=== PATIENT | female | born 1955 | race Hispanic/Latino ===

== ENCOUNTER 2020-12-10 10:24 | Outpatient (CLI) | payer MEDICARE | END 2020-12-10 10:25 | disposition home or self-care (01) | LOC: BICMAMMO 10:24 | PROVIDERS: ATTEND Obstetrics & Gynecology | DX: Z12.31 Encounter for screening mammogram for malignant neoplasm of breast (principal); Z80.3 Family history of malignant neoplasm of breast | CPT/HCPCS: 77063; 77067 ==

== ENCOUNTER 2021-05-31 07:49 | Inpatient (IN) | payer MEDICARE ==
[2021-05-31] MEDS ORDERED: CEFAZOLIN 1 GM VIAL ONE (09:05)
[2021-05-31] MEDS ORDERED: Iopamidol-370 76% 500 ML 1 ML ONE (09:11)
[2021-05-31] MEDS ORDERED: Fentanyl 100 MCG/2 ML VIAL ONE (11:16)
[2021-05-31] MEDS ORDERED: Midazolam HCl 2 mg/2 ml Vial ONE (11:16)
[2021-05-31] MEDS ORDERED: Bupivacaine 0.25% HCL 30 ML VIAL ONE (11:19)
[2021-05-31] MEDS ORDERED: Ondansetron PF 4 MG/2 ML Vial ONE ×2 (11:30→20:54)
[2021-05-31] MEDS ORDERED: ePHEDrine 50 MG/ML VIAL ONE (11:30)
[2021-05-31] MEDS ORDERED: PROPOFOL 200 MG/20 ML VIAL ONE (11:30)
[2021-05-31] MEDS ORDERED: Lidocaine 1% PF 5 ML VIAL ONE (11:30)
[2021-05-31] MEDS ORDERED: Dexamethasone 20 MG/5 ML VIAL ONE (11:30)
[2021-05-31] MEDS ORDERED: Succinylcholine 200 MG/10 ml SYRINGE FS ONE (11:30)
[2021-05-31] MEDS ORDERED: Nitroglycerin 0.4 MG TAB (25 Tab Bottle) ONE (13:04)
[2021-05-31] MEDS ORDERED: Morphine 4 MG/ML VIAL ONE (13:46)
[2021-05-31] MEDS ORDERED: Acetaminophen 500 MG TAB ONE ×2 (15:12)
[2021-05-31] MEDS ORDERED: Morphine 2 MG/ML VIAL ONE (15:34)
[2021-05-31] MEDS ORDERED: Morphine 2 MG/ML VIAL SLOW IVP PRN (15:56)
[2021-05-31] MEDS ORDERED: Famotidine 20 MG TAB PO PRN (15:58)
[2021-05-31] MEDS ORDERED: Benzonatate 100 MG CAP PO PRN (15:58)
[2021-05-31] MEDS ORDERED: Ondansetron PF 4 MG/2 ML Vial IVP PRN (16:34)
[2021-05-31] MEDS ORDERED: Guaifenesin DM 100-10/5 ML UDCUP PO PRN (16:34)
[2021-05-31] MEDS ORDERED: Ondansetron ODT 4 MG TAB PO PRN (16:34)
[2021-05-31] MEDS ORDERED: Clopidogrel Bisulfate 75 MG TAB PO SCH (16:45)
[2021-05-31] MEDS ORDERED: Aspirin 81 mg Enteric Coated Tablet PO SCH (16:45)
[2021-05-31] MEDS ORDERED: Aspirin 81 mg Enteric Coated Tablet ONE (17:18)
[2021-05-31] MEDS ORDERED: Nitroglycerin 50 MG/250 ML BOT 250 ML ONE (17:19)
[2021-05-31] MEDS ORDERED: Clopidogrel Bisulfate 75 MG TAB ONE (17:20)
[2021-05-31 17:26] LABS: #Lymphocytes 0.8 thou/uL (1.20-3.40); #Monocytes 0.1 thou/uL (0.11-0.59); %Basophils 0.3 % (0.0-1.0); %Eosinophils 0.1 % (0.0-10.0); %Lymphocytes 7.9 % (21.0-51.0); %Monocytes 0.8 % (0.0-10.0); %Neutrophils 90.9 % (42.0-75.0); Hemoglobin 11.2 g/dL (12.0-16.0); Mean Corpuscular HGB CONC 34.1 g/dL (32.0-36.0); Mean Corpuscular Hemoglobin 30.1 pg (27.0-31.0); Mean Corpuscular Volume 88.3 fL (78.0-98.0); Mean Platelet Volume 7.5 fL (7.4-10.4); Platelet Count 234 thou/uL (130-400); RBC Distribution Width 12.6 % (11.5-14.5); Red Blood Cell (RBC) Count 3.73 mill/uL (4.20-5.40); White Blood Cell (WBC) Count 9.9 thou/uL (4.8-10.8)
[2021-05-31] MEDS ORDERED: Nitroglycerin 50 MG/250 ML BOT 250 ML IVPB SCH (17:30)
[2021-05-31 17:50] LABS: ALT (SGPT) 16 U/L (8-55); AST (SGOT) 14 U/L (5-34); Albumin 3.7 g/dL (3.4-4.8); Alkaline Phosphatase 73 U/L (40-110); Anion Gap 8 mmol/L (10-20); BUN (Urea Nitrogen) 18 mg/dL (9.8-20.1); Bilirubin, Total 0.3 mg/dL (0.2-1.2); Calc. Creatinine Clearance 116 mL/min (70-130); Carbon Dioxide 28 mmol/L (23-31); Chloride 105 mmol/L (98-107); Globulin 2.9 g/dL (2.4-3.5); Glucose 132 mg/dL (80-115); Lipase 36 U/L (8-78); Protein, Total 6.6 g/dL (5.8-8.1); Sodium 137 mmol/L (136-145)
[2021-05-31 17:54] LABS: Troponin I Less than 0.010 ng/mL (< 0.028)
[2021-05-31] MEDS ORDERED: Albuterol 200 PUFF (6.7GM INHALER) INH PRN (18:55)
[2021-05-31] MEDS ORDERED: Albuterol Sulfate 1.25 MG/3 ML NEB INH PRN (19:05)
[2021-05-31] MEDS ORDERED: Pantoprazole 40 MG VIAL IVP SCH (19:30)
[2021-05-31 20:35] LABS: Troponin I Less than 0.010 ng/mL (< 0.028)
[2021-05-31] MEDS: Montelukast Sodium 10 mg Tablet PO SCH (21:00)
[2021-05-31] MEDS: Carvedilol 6.25 MG TAB PO SCH (21:00)
[2021-05-31] MEDS: Pramipexole Di-HCl 0.25 MG TAB PO SCH (21:00)
[2021-05-31] MEDS: Losartan 25 MG TAB PO SCH (21:00)
[2021-05-31] MEDS ORDERED: Nitroglycerin 2% Ointment 1 INCH/1 GM Packet TOP SCH ×2 (22:00)
[2021-05-31] MEDS: Morphine 2 MG/ML VIAL SLOW IVP PRN (23:07)
[2021-06-01] MEDS ORDERED: Nitroglycerin 50 MG/250 ML BOT 250 ML IVPB PRN (00:45)
[2021-06-01] MEDS ORDERED: Enoxaparin Sodium 100 MG/ML SYRINGE SC SCH (00:45)
[2021-06-01] MEDS: Ipratropium Bromide 2.5 ml Neb NEB SCH ×4 (01:18→18:13)
[2021-06-01 03:59] LABS: #Lymphocytes 0.9 thou/uL (1.20-3.40); #Monocytes 0.2 thou/uL (0.11-0.59); #Neutrophils 8.1 thou/uL (1.40-6.50); %Lymphocytes 9.4 % (21.0-51.0); %Monocytes 2.5 % (0.0-10.0); %Neutrophils 88.1 % (42.0-75.0); Hemoglobin 11.2 g/dL (12.0-16.0); Mean Corpuscular HGB CONC 34.7 g/dL (32.0-36.0); Mean Corpuscular Hemoglobin 30.7 pg (27.0-31.0); Mean Corpuscular Volume 88.3 fL (78.0-98.0); Mean Platelet Volume 7.6 fL (7.4-10.4); Platelet Count 237 thou/uL (130-400); RBC Distribution Width 12.5 % (11.5-14.5); Red Blood Cell (RBC) Count 3.65 mill/uL (4.20-5.40); White Blood Cell (WBC) Count 9.2 thou/uL (4.8-10.8)
[2021-06-01 04:13] LABS: Anion Gap 12 mmol/L (10-20); BUN (Urea Nitrogen) 15 mg/dL (9.8-20.1); Calc. Creatinine Clearance 143 mL/min (70-130); Calcium 8.9 mg/dL (7.8-10.44); Carbon Dioxide 25 mmol/L (23-31); Cardiac Risk 2.7 (Less than 4.5); Chloride 104 mmol/L (98-107); Cholesterol 170 mg/dl (< 200 Desired); Glucose 142 mg/dL (80-115); HDL Cholesterol 64 mg/dL (>60 Neg Risk); LDL Cholesterol, Calculated 93 mg/dL; Potassium 3.7 mmol/L (3.5-5.1); Sodium 137 mmol/L (136-145); Triglycerides 67 mg/dL (Less than 150)
[2021-06-01] MEDS: Acetaminophen 325 MG TAB PO PRN (05:11)
[2021-06-01 05:27] VITALS: BMI 43.2
[2021-06-01] MEDS ORDERED: hydrALAZINE 20 MG/ML VIAL SLOW IVP PRN (06:03)
[2021-06-01] MEDS ORDERED: TIOTROPIUM BROMIDE 4 GM INH SCH (09:00)
[2021-06-01] MEDS ORDERED: MIST INHAL INH SCH (09:00)
[2021-06-01] MEDS: Aspirin 81 mg Enteric Coated Tablet PO SCH (09:14)
[2021-06-01] MEDS: Ascorbic Acid 500 mg Chewable Tablet PO SCH (09:14)
[2021-06-01] MEDS: Clopidogrel Bisulfate 75 MG TAB PO SCH (09:14)
[2021-06-01] MEDS: Losartan 25 MG TAB PO SCH ×2 (09:14→21:10)
[2021-06-01] MEDS: Cholecalciferol 1,000 UNITS (25 MCG) TAB PO SCH (09:15)
[2021-06-01] MEDS: Carvedilol 6.25 MG TAB PO SCH ×2 (09:15→21:09)
[2021-06-01] MEDS: Magnesium Oxide 400 MG TAB PO SCH (09:15)
[2021-06-01] MEDS: Pantoprazole 40 MG VIAL IVP SCH (09:16)
[2021-06-01] MEDS: Morphine 2 MG/ML VIAL SLOW IVP PRN ×2 (11:00→17:03)
[2021-06-01 12:51] LABS: Troponin I Less than 0.010 ng/mL (< 0.028)
[2021-06-01] MEDS ORDERED: Lidocaine 2% Viscous Solution 20 ML, Aluminum & Magnesium Hydroxide 30 ML, Donnatal Eli... SSW SCH (13:30)
[2021-06-01] MEDS: Pramipexole Di-HCl 0.25 MG TAB PO SCH (21:10)
[2021-06-01] MEDS: Montelukast Sodium 10 mg Tablet PO SCH (21:10)
[2021-06-02] MEDS: Ipratropium Bromide 2.5 ml Neb NEB SCH ×4 (02:15→18:25)
[2021-06-02] MEDS: Pantoprazole 40 MG VIAL IVP SCH (08:56)
[2021-06-02] MEDS: Clopidogrel Bisulfate 75 MG TAB PO SCH (08:56)
[2021-06-02] MEDS: Ascorbic Acid 500 mg Chewable Tablet PO SCH (08:56)
[2021-06-02] MEDS: Aspirin 81 mg Enteric Coated Tablet PO SCH (08:56)
[2021-06-02] MEDS: Magnesium Oxide 400 MG TAB PO SCH (08:56)
[2021-06-02] MEDS: Cholecalciferol 1,000 UNITS (25 MCG) TAB PO SCH (08:56)
[2021-06-02] MEDS: Losartan 25 MG TAB PO SCH ×2 (08:57→20:57)
[2021-06-02] MEDS: Carvedilol 6.25 MG TAB PO SCH ×2 (08:57→20:57)
[2021-06-02 15:40] LABS: ALT (SGPT) 16 U/L (8-55); AST (SGOT) 16 U/L (5-34); Albumin 3.6 g/dL (3.4-4.8); Alkaline Phosphatase 67 U/L (40-110); Bilirubin, Direct 0.1 mg/dL (0.1-0.3); Bilirubin, Total 0.3 mg/dL (0.2-1.2); Lipase 47 U/L (8-78); Protein, Total 6.5 g/dL (5.8-8.1)
[2021-06-02] MEDS: Pramipexole Di-HCl 0.25 MG TAB PO SCH (20:56)
[2021-06-02] MEDS: Montelukast Sodium 10 mg Tablet PO SCH (20:57)
[2021-06-03] MEDS: Ipratropium Bromide 2.5 ml Neb NEB SCH ×4 (00:42→19:16)
[2021-06-03] MEDS: Ascorbic Acid 500 mg Chewable Tablet PO SCH (08:43)
[2021-06-03] MEDS: Cholecalciferol 1,000 UNITS (25 MCG) TAB PO SCH (08:43)
[2021-06-03] MEDS: Aspirin 81 mg Enteric Coated Tablet PO SCH (08:43)
[2021-06-03] MEDS: Clopidogrel Bisulfate 75 MG TAB PO SCH (08:43)
[2021-06-03] MEDS: Carvedilol 6.25 MG TAB PO SCH ×2 (08:44→20:18)
[2021-06-03] MEDS: Magnesium Oxide 400 MG TAB PO SCH (08:44)
[2021-06-03] MEDS: Pantoprazole 40 MG VIAL IVP SCH (08:44)
[2021-06-03] MEDS: Losartan 25 MG TAB PO SCH ×2 (08:44→20:18)
[2021-06-03] MEDS ORDERED: Iopamidol-370 76% 500 ML 1 ML ONE (13:26)
[2021-06-03 14:53] LABS: #Basophils 0.1 thou/uL (0.0-0.2); #Eosinphils 0.2 thou/uL (0.0-0.7); #Lymphocytes 2.9 thou/uL (1.20-3.40); #Monocytes 0.9 thou/uL (0.11-0.59); #Neutrophils 5.6 thou/uL (1.40-6.50); %Eosinophils 1.8 % (0.0-10.0); %Lymphocytes 30.2 % (21.0-51.0); Hemoglobin 11.9 g/dL (12.0-16.0); Mean Corpuscular HGB CONC 33.5 g/dL (32.0-36.0); Mean Corpuscular Hemoglobin 29.5 pg (27.0-31.0); Mean Corpuscular Volume 88.2 fL (78.0-98.0); Mean Platelet Volume 7.4 fL (7.4-10.4); Platelet Count 256 thou/uL (130-400); RBC Distribution Width 12.6 % (11.5-14.5); Red Blood Cell (RBC) Count 4.05 mill/uL (4.20-5.40); White Blood Cell (WBC) Count 9.6 thou/uL (4.8-10.8)
[2021-06-03 15:15] LABS: Anion Gap 11 mmol/L (10-20); BUN (Urea Nitrogen) 15 mg/dL (9.8-20.1); Calc. Creatinine Clearance 110 mL/min (70-130); Carbon Dioxide 27 mmol/L (23-31); Chloride 105 mmol/L (98-107); Glucose 103 mg/dL (80-115); Sodium 139 mmol/L (136-145)
[2021-06-03] MEDS: Acetaminophen 325 MG TAB PO PRN (20:17)
[2021-06-03] MEDS: Montelukast Sodium 10 mg Tablet PO SCH (20:17)
[2021-06-03] MEDS: Pramipexole Di-HCl 0.25 MG TAB PO SCH (20:18)
[2021-06-04] MEDS: Ipratropium Bromide 2.5 ml Neb NEB SCH ×5 (00:13→23:43)
[2021-06-04 04:36] LABS: #Basophils 0.1 thou/uL (0.0-0.2); #Eosinphils 0.2 thou/uL (0.0-0.7); #Lymphocytes 3.1 thou/uL (1.20-3.40); #Monocytes 0.9 thou/uL (0.11-0.59); #Neutrophils 6.1 thou/uL (1.40-6.50); %Basophils 0.6 % (0.0-1.0); %Eosinophils 1.9 % (0.0-10.0); %Lymphocytes 29.7 % (21.0-51.0); %Monocytes 8.5 % (0.0-10.0); %Neutrophils 59.2 % (42.0-75.0); Hemoglobin 11.6 g/dL (12.0-16.0); Mean Corpuscular HGB CONC 33.3 g/dL (32.0-36.0); Mean Corpuscular Hemoglobin 29.3 pg (27.0-31.0); Mean Corpuscular Volume 87.9 fL (78.0-98.0); Mean Platelet Volume 7.6 fL (7.4-10.4); Platelet Count 253 thou/uL (130-400); RBC Distribution Width 12.6 % (11.5-14.5); Red Blood Cell (RBC) Count 3.98 mill/uL (4.20-5.40); White Blood Cell (WBC) Count 10.3 thou/uL (4.8-10.8)
[2021-06-04 04:57] LABS: Anion Gap 9 mmol/L (10-20); BUN (Urea Nitrogen) 13 mg/dL (9.8-20.1); Calc. Creatinine Clearance 113 mL/min (70-130); Carbon Dioxide 30 mmol/L (23-31); Chloride 107 mmol/L (98-107); Glucose 95 mg/dL (80-115); Potassium 4.2 mmol/L (3.5-5.1); Sodium 142 mmol/L (136-145)
[2021-06-04] MEDS: Ascorbic Acid 500 mg Chewable Tablet PO SCH (09:05)
[2021-06-04] MEDS: Aspirin 81 mg Enteric Coated Tablet PO SCH (09:05)
[2021-06-04] MEDS: Clopidogrel Bisulfate 75 MG TAB PO SCH (09:07)
[2021-06-04] MEDS: Cholecalciferol 1,000 UNITS (25 MCG) TAB PO SCH (09:07)
[2021-06-04] MEDS: Carvedilol 6.25 MG TAB PO SCH ×2 (09:07→20:32)
[2021-06-04] MEDS: Losartan 25 MG TAB PO SCH ×2 (09:08→20:32)
[2021-06-04] MEDS: Magnesium Oxide 400 MG TAB PO SCH (09:08)
[2021-06-04] MEDS: Montelukast Sodium 10 mg Tablet PO SCH (20:32)
[2021-06-04] MEDS: Pramipexole Di-HCl 0.25 MG TAB PO SCH (20:36)
[2021-06-05 07:39] VITALS: BP 171/79; TEMP 97.8
[2021-06-05] MEDS: Ascorbic Acid 500 mg Chewable Tablet PO SCH (09:11)
[2021-06-05] MEDS: Magnesium Oxide 400 MG TAB PO SCH (09:11)
[2021-06-05] MEDS: Cholecalciferol 1,000 UNITS (25 MCG) TAB PO SCH (09:11)
[2021-06-05] MEDS: Carvedilol 6.25 MG TAB PO SCH (09:12)
[2021-06-05] MEDS: Losartan 25 MG TAB PO SCH (09:13)
[2021-06-05] MEDS: Aspirin 81 mg Enteric Coated Tablet PO SCH (09:13)
[2021-06-05] MEDS: Clopidogrel Bisulfate 75 MG TAB PO SCH (09:13)
[2021-06-05] MEDS: Ipratropium Bromide 2.5 ml Neb NEB SCH (09:19)
== END 2021-06-05 10:52 | disposition home or self-care (01) | DRG 981 ==
LOC: SDC 07:49 → CCU 15:58 → INTOOBSV 15:58 → 2NO 06-01 16:54 → OBSVTOIN 06-04 14:38
PROVIDERS: ADMIT Urology; ATTEND Urology
PROC: 01PY3MZ Removal of Neurostimulator Lead from Peripheral Nerve, Percutaneous Approach (ICD-10-PCS; principal; 2021-05-31)
PROC: 0JPT3MZ Removal of Stimulator Generator from Trunk Subcutaneous Tissue and Fascia, Percutaneous Approach (ICD-10-PCS; 2021-05-31)
DX: T83.190A Other mechanical complication of urinary electronic stimulator device, initial encounter (principal); J69.0 Pneumonitis due to inhalation of food and vomit; I25.110 Atherosclerotic heart disease of native coronary artery with unstable angina pectoris; J98.11 Atelectasis; Y84.9 Medical procedure, unspecified as the cause of abnormal reaction of the patient, or of later complication, without mention of misadventure at the time of the procedure; I50.9 Heart failure, unspecified; J45.909 Unspecified asthma, uncomplicated; G47.33 Obstructive sleep apnea (adult) (pediatric); I11.0 Hypertensive heart disease with heart failure; E78.5 Hyperlipidemia, unspecified; E66.9 Obesity, unspecified; G89.29 Other chronic pain; R32 Unspecified urinary incontinence; G25.81 Restless legs syndrome; Z96.652 Presence of left artificial knee joint; K21.9 Gastro-esophageal reflux disease without esophagitis; F41.9 Anxiety disorder, unspecified; F32.9 Major depressive disorder, single episode, unspecified; R10.9 Unspecified abdominal pain; R07.89 Other chest pain; Z68.41 Body mass index [BMI] 40.0-44.9, adult; Z95.5 Presence of coronary angioplasty implant and graft; I25.2 Old myocardial infarction; Z88.5 Allergy status to narcotic agent; Z79.01 Long term (current) use of anticoagulants; Z79.82 Long term (current) use of aspirin; Z79.51 Long term (current) use of inhaled steroids; Z79.899 Other long term (current) drug therapy; Z90.49 Acquired absence of other specified parts of digestive tract; Z87.891 Personal history of nicotine dependence; Z82.49 Family history of ischemic heart disease and other diseases of the circulatory system; Z80.1 Family history of malignant neoplasm of trachea, bronchus and lung; Z80.42 Family history of malignant neoplasm of prostate
CPT/HCPCS: 36415; 71045; 71046; 71275; 74019; 74177; 80048; 80053; 80061; 80076; 83690; 84443; 84484; 85025; 93005; 93010; 93306; 93975; 94640; 94760; 96372; 96374; 96375; 96376; C9113; G0378; J0360; J0690; J1100; J1650; J1956; J2250; J2270; J2405; J2704; J3010; J3490; Q0162; Q9967; S0020